=== PATIENT | male | born 1940 | race Caucasian/White ===

== ENCOUNTER → 2017-02-13 | Outpatient (CLI) | payer MEDICARE, OTHER ==
[~2017-02-13] MED LIST: AMLO5TAB2 PO; ASPI-621 PO; CHLO25TA PO; FINA5TAB4 PO; IRBE300T16 PO; METF500T4 PO; SIMV5TAB5 PO; TAMS0.4C2 PO
[2017-02-13 14:20] LABS: BLOOD UREA NITROGEN 32 mg/dL (7-18)
[2017-02-13 14:23] LABS: ASPARTATE AMINO TRANSFERASE 28 U/L (15-37)
== END | disposition home or self-care (01) ==
LOC: STAR 12:44
PROVIDERS: ATTEND Neurological Surgery
DX: Z01.818 Encounter for other preprocedural examination (principal); M51.36 Other intervertebral disc degeneration, lumbar region; M48.06 Spinal stenosis, lumbar region; M47.892 Other spondylosis, cervical region; M43.16 Spondylolisthesis, lumbar region; R79.1 Abnormal coagulation profile; Z98.1 Arthrodesis status
CPT/HCPCS: 36415; 71020; 72110; 80053; 81003; 83036; 85025; 85610; 85730; 93005

== ENCOUNTER 2017-02-21 07:10 | Inpatient (IN) | payer MEDICARE, OTHER ==
[~2017-02-21] VITALS: Ht 177.8 cm; Wt 85.3 kg
[~2017-02-21 07:10] MED LIST changes: +BACITRACIN 50,000 UNIT ONE; +BUPIVACAINE/PF-EPI 0.5% 1:200K ONE; +THROMBIN 5,000 UNIT VIAL TP ONE; +VANCOMYCIN 1,000 MG ONE
[2017-02-21 07:50] VITALS: BP 125/78
[2017-02-21] MEDS ORDERED: LACTATED RINGERS 1,000 ML IV SCH (07:58)
[2017-02-21] MEDS ORDERED: LIDOCAINE 1%, 2ML ONE (08:00)
[2017-02-21] MEDS ORDERED: LIDOCAINE 1%, 2ML SQ PRN (08:00)
[2017-02-21] MEDS ORDERED: MIDAZOLAM 1 MG/ML, 2ML ONE (08:09)
[2017-02-21] MEDS ORDERED: FENTANYL PF 250 MCG/5ML ONE ×3 (08:09→14:01)
[2017-02-21] MEDS ORDERED: CEFAZOLIN 1,000 MG ONE (10:55)
[2017-02-21] MEDS ORDERED: SUCCINYLCHOLINE 20 MG/ML, 10ML ONE (10:55)
[2017-02-21] MEDS ORDERED: ROCURONIUM 10 MG/ML ONE (10:55)
[2017-02-21] MEDS ORDERED: PHENYLEPHRINE 10 MG/ML ONE (10:55)
[2017-02-21] MEDS ORDERED: PROPOFOL 10 MG/ML, 20ML ONE ×2 (10:55)
[2017-02-21] MEDS ORDERED: EPHEDRINE 50 MG/ML, 1ML ONE (10:55)
[2017-02-21] MEDS ORDERED: ACETAMINOPHEN 325 MG TABLET PO PRN (11:00)
[2017-02-21] MEDS ORDERED: ONDANSETRON 2MG/ML, 2ML IVPush PRN (11:00)
[2017-02-21] MEDS ORDERED: hydrALAzine 20 MG/ML, 1ML IV PRN (11:00)
[2017-02-21] MEDS ORDERED: MEPERIDINE/PF 25MG/0.5ML IVPush PRN (11:00)
[2017-02-21] MEDS ORDERED: LABETALOL 5MG/ML, 20ML IV PRN (11:00)
[2017-02-21] MEDS ORDERED: OXYcodone 5 MG/5 ML ORAL.SOL UDC PO PRN (11:00)
[2017-02-21] MEDS ORDERED: METOCLOPRAMIDE 5 MG/ML, 2ML IV PRN (11:00)
[2017-02-21] MEDS ORDERED: PROMETHAZINE 25 MG/ML, 1ML IV PRN (11:00)
[2017-02-21] MEDS ORDERED: BUPIVACAINE/PF 0.25% INFIL ONE (12:35)
[2017-02-21] MEDS ORDERED: HEPARIN 1,000 UNITS/ML, 30ML IVPB ONE (12:36)
[2017-02-21] MEDS ORDERED: BUPIVACAINE/PF 0.25% ONE (13:20)
[2017-02-21] MEDS ORDERED: HYDROmorphone 2 MG/ML, 1ML ONE (15:07)
[2017-02-21] MEDS ORDERED: FENTANYL PF 100 MCG/2ML ONE (15:07)
[2017-02-21] MEDS: FENTANYL PF 100 MCG/2ML IV PRN ×2 (15:35→16:35)
[2017-02-21] MEDS ORDERED: HYDROmorphone PCA 30 MG/30 ML ONE (15:44)
[2017-02-21] MEDS: HYDROmorphone 1 MG/ML, 1ML IV PRN ×2 (16:00→16:20)
[2017-02-21] MEDS ORDERED: HYDROmorphone PCA 30 MG/30 ML IV PRN (18:00)
[2017-02-21] MEDS ORDERED: NS + 20MEQ KCL 1,000 ML IV SCH (18:00)
[2017-02-21] MEDS ORDERED: DIPHENHYDRAMINE 50 MG/ML, 1ML IVPush PRN (18:00)
[2017-02-21] MEDS ORDERED: HYDROcodone/APAP 5/325 TABLET PO PRN (18:00)
[2017-02-21] MEDS ORDERED: DIPHENHYDRAMINE 25 MG CAPSULE PO PRN (18:00)
[2017-02-21] MEDS ORDERED: ONDANSETRON 2MG/ML, 2ML IV PRN (18:00)
[2017-02-21] MEDS ORDERED: DIAZEPAM 5 MG/ML, 2ML IV PRN (18:00)
[2017-02-21] MEDS ORDERED: TIZANIDINE 4MG TABLET PO PRN (18:00)
[2017-02-21 20:00] VITALS: BP 95/61
[2017-02-21] MEDS: AMLODIPINE 5 MG TABLET PO SCH (20:47)
[2017-02-21] MEDS: SIMVASTATIN 5 MG TABLET PO SCH (20:47)
[2017-02-21] MEDS: CEFAZOLIN PMX 1GM/50ML 50 ML IVPB SCH (22:54)
[2017-02-22] VITALS (15 sets, daily range): BP systolic 55–133; BP diastolic 14–72
[2017-02-22] MEDS: OXYcodone/APAP 5/325MG TABLET PO PRN ×6 (03:00→21:50)
[2017-02-22 05:22] LABS: BLOOD UREA NITROGEN 27 mg/dL (7-18)
[2017-02-22] MEDS: CEFAZOLIN PMX 1GM/50ML 50 ML IVPB SCH (06:20)
[2017-02-22] MEDS: metFORMIN 500 MG TABLET PO SCH (09:32)
[2017-02-22] MEDS: SENNA/DOCUSATE TABLET PO SCH (09:32)
[2017-02-22] MEDS: IRBESARTAN 300 MG TABLET PO SCH (09:32)
[2017-02-22] MEDS: DIAZEPAM 5 MG TABLET PO PRN (09:32)
[2017-02-22] MEDS: AMLODIPINE 5 MG TABLET PO SCH ×2 (09:33→21:00)
[2017-02-22] MEDS: FINASTERIDE 5 MG TABLET PO SCH (09:33)
[2017-02-22] MEDS: NS + 20MEQ KCL 1,000 ML IV SCH (12:58)
[2017-02-22] MEDS: TAMSULOSIN 0.4 MG CAP.ER.24H PO SCH (12:58)
[2017-02-22] MEDS ORDERED: SODIUM CHLORIDE 0.9%, 500ML IVBOLUS ONE (15:30)
[2017-02-22 16:39] LABS: ASPARTATE AMINO TRANSFERASE 51 U/L (15-37); BLOOD UREA NITROGEN 25 mg/dL (7-18)
[2017-02-22] MEDS: MEPERIDINE/PF 100 MG/ML IM PRN (19:39)
[2017-02-22] MEDS: SIMVASTATIN 5 MG TABLET PO SCH (21:50)
[2017-02-23 02:06] VITALS: BP 107/50
[2017-02-23] MEDS: DIAZEPAM 5 MG TABLET PO PRN ×2 (03:47→20:42)
[2017-02-23 05:11] LABS: BLOOD UREA NITROGEN 19 mg/dL (7-18)
[2017-02-23] MEDS: OXYcodone/APAP 5/325MG TABLET PO PRN ×4 (06:38→23:02)
[2017-02-23 07:29] VITALS: BP 144/76
[2017-02-23] MEDS: NS + 20MEQ KCL 1,000 ML IV SCH ×3 (07:30→22:58)
[2017-02-23] MEDS: metFORMIN 500 MG TABLET PO SCH ×2 (09:59→20:42)
[2017-02-23] MEDS: IRBESARTAN 300 MG TABLET PO SCH (10:00)
[2017-02-23] MEDS: SENNA/DOCUSATE TABLET PO SCH (10:00)
[2017-02-23] MEDS: FINASTERIDE 5 MG TABLET PO SCH (10:00)
[2017-02-23] MEDS: AMLODIPINE 5 MG TABLET PO SCH ×2 (10:00→20:42)
[2017-02-23] MEDS: TAMSULOSIN 0.4 MG CAP.ER.24H PO SCH (10:00)
[2017-02-23] MEDS: CHLORTHALIDONE 25 MG TABLET PO SCH (10:00)
[2017-02-23] MEDS ORDERED: BISACODYL 10 MG SUPP PR ONE (10:00)
[2017-02-23] MEDS: MORPHINE SULFATE 4 MG/ML, 1ML IV PRN ×3 (13:39→23:53)
[2017-02-23 15:28] VITALS: BP 110/44
[2017-02-23 19:07] VITALS: BP 111/49
[2017-02-23] MEDS: SIMVASTATIN 5 MG TABLET PO SCH (20:42)
[2017-02-24] MEDS: MORPHINE SULFATE 4 MG/ML, 1ML IV PRN ×4 (00:13→15:33)
[2017-02-24] MEDS: MEPERIDINE/PF 100 MG/ML IM PRN (02:30)
[2017-02-24 02:35] VITALS: BP 116/56
[2017-02-24] MEDS: DIAZEPAM 5 MG TABLET PO PRN ×3 (03:07→21:36)
[2017-02-24] MEDS: OXYcodone/APAP 5/325MG TABLET PO PRN (04:50)
[2017-02-24 05:53] LABS: BLOOD UREA NITROGEN 13 mg/dL (7-18)
[2017-02-24 07:15] VITALS: BP 139/57
[2017-02-24] MEDS: metFORMIN 500 MG TABLET PO SCH ×2 (09:17→21:35)
[2017-02-24] MEDS: FINASTERIDE 5 MG TABLET PO SCH (09:17)
[2017-02-24] MEDS: IRBESARTAN 300 MG TABLET PO SCH (09:17)
[2017-02-24] MEDS: TAMSULOSIN 0.4 MG CAP.ER.24H PO SCH (09:18)
[2017-02-24] MEDS: SENNA/DOCUSATE TABLET PO SCH (09:18)
[2017-02-24] MEDS: AMLODIPINE 5 MG TABLET PO SCH ×2 (09:18→21:00)
[2017-02-24 09:20] VITALS: BP 121/61
[2017-02-24] MEDS: OXYcodone/APAP 10/325MG TABLET PO SCH ×4 (09:22→19:50)
[2017-02-24] MEDS ORDERED: NAPHAZOLINE/PHENIRAMINE OPHTH EACHEYE PRN (09:30)
[2017-02-24] MEDS: BISACODYL 10 MG SUPP PR PRN (11:30)
[2017-02-24] MEDS: NS + 20MEQ KCL 1,000 ML IV SCH ×2 (13:40→19:27)
[2017-02-24 15:25] VITALS: BP 110/62
[2017-02-24 16:34] LABS: IS PT STATUS REG ER OR PRE ER? NO
[2017-02-24] MEDS ORDERED: LEVOFLOXACIN/PMX 750MG/150ML 150 ML IV SCH (17:00)
[2017-02-24] MEDS ORDERED: ALBUTEROL SULFATE 2.5 MG/3 ML ONE (18:17)
[2017-02-24 20:00] VITALS: BP 108/58
[2017-02-24] MEDS: ALBUTEROL SULFATE 2.5 MG/3 ML NPPB SCH (20:00)
[2017-02-24] MEDS: AZITHROMYCIN 500 MG in SODIUM CHLORIDE 0.9% 250 ML IV SCH (20:26)
[2017-02-24] MEDS: CEFTRIAXONE PMX 1GM/50ML 50 ML IV SCH (21:34)
[2017-02-24] MEDS: SIMVASTATIN 5 MG TABLET PO SCH (21:35)
[2017-02-24 22:14] LABS: IS PT STATUS REG ER OR PRE ER? NO
[2017-02-25] MEDS: OXYcodone/APAP 10/325MG TABLET PO SCH ×6 (00:03→20:25)
[2017-02-25 03:00] VITALS: BP 118/55
[2017-02-25 04:23] LABS: BLOOD UREA NITROGEN 18 mg/dL (7-18)
[2017-02-25 04:31] LABS: IS PT STATUS REG ER OR PRE ER? NO
[2017-02-25] MEDS: DIAZEPAM 5 MG TABLET PO PRN ×3 (06:10→21:18)
[2017-02-25 07:28] VITALS: BP 131/50
[2017-02-25] MEDS: ALBUTEROL SULFATE 2.5 MG/3 ML NPPB SCH ×4 (08:20→19:30)
[2017-02-25] MEDS: TIZANIDINE 4MG TABLET PO SCH ×3 (08:54→23:00)
[2017-02-25] MEDS: SENNA/DOCUSATE TABLET PO SCH (08:55)
[2017-02-25] MEDS: AMLODIPINE 5 MG TABLET PO SCH ×2 (08:55→20:25)
[2017-02-25] MEDS: TAMSULOSIN 0.4 MG CAP.ER.24H PO SCH (08:55)
[2017-02-25] MEDS: FINASTERIDE 5 MG TABLET PO SCH (08:55)
[2017-02-25] MEDS: metFORMIN 500 MG TABLET PO SCH ×2 (08:55→20:25)
[2017-02-25] MEDS: IRBESARTAN 300 MG TABLET PO SCH (08:56)
[2017-02-25] MEDS: CHLORTHALIDONE 25 MG TABLET PO SCH (08:57)
[2017-02-25] MEDS: NS + 20MEQ KCL 1,000 ML IV SCH ×3 (09:30→22:30)
[2017-02-25] MEDS ORDERED: POTASSIUM CHLORIDE 20 MEQ TAB.ER.PRT PO ONE (10:30)
[2017-02-25] MEDS: MORPHINE SULFATE 4 MG/ML, 1ML IV PRN ×2 (10:50→14:43)
[2017-02-25] MEDS ORDERED: OMNIPAQUE 350 MG/ML, 100ML BOTTLE ONE (11:31)
[2017-02-25 15:09] VITALS: BP 95/50
[2017-02-25] MEDS: AZITHROMYCIN 500 MG in SODIUM CHLORIDE 0.9% 250 ML IV SCH (20:23)
[2017-02-25] MEDS: SIMVASTATIN 5 MG TABLET PO SCH (20:25)
[2017-02-25 20:33] VITALS: BP 107/55
[2017-02-25] MEDS: CEFTRIAXONE PMX 1GM/50ML 50 ML IV SCH (21:18)
[2017-02-26] MEDS: OXYcodone/APAP 10/325MG TABLET PO SCH ×6 (00:25→22:19)
[2017-02-26] MEDS: DIAZEPAM 5 MG TABLET PO PRN (03:22)
[2017-02-26 04:33] VITALS: BP 119/55
[2017-02-26] MEDS: TIZANIDINE 4MG TABLET PO SCH ×4 (04:47→21:18)
[2017-02-26 05:11] LABS: BLOOD UREA NITROGEN 18 mg/dL (7-18)
[2017-02-26 07:31] VITALS: BP 116/61
[2017-02-26] MEDS: ALBUTEROL SULFATE 2.5 MG/3 ML NPPB SCH ×4 (08:15→20:00)
[2017-02-26] MEDS: TAMSULOSIN 0.4 MG CAP.ER.24H PO SCH (08:41)
[2017-02-26] MEDS: SENNA/DOCUSATE TABLET PO SCH (08:42)
[2017-02-26] MEDS: FINASTERIDE 5 MG TABLET PO SCH (08:42)
[2017-02-26] MEDS: metFORMIN 500 MG TABLET PO SCH ×2 (08:42→21:18)
[2017-02-26] MEDS: IRBESARTAN 300 MG TABLET PO SCH (08:43)
[2017-02-26] MEDS: AMLODIPINE 5 MG TABLET PO SCH ×2 (08:43→21:00)
[2017-02-26] MEDS: DEXAMETHASONE 4 MG/ML, 1ML IVPush SCH ×3 (10:36→21:18)
[2017-02-26] MEDS: MAGNESIUM HYDROXIDE 8%, 30ML UDC PO PRN (12:43)
[2017-02-26 14:48] VITALS: BP 135/67
[2017-02-26] MEDS: NS + 20MEQ KCL 1,000 ML IV SCH ×2 (15:10→19:00)
[2017-02-26 18:44] VITALS: BP 131/63
[2017-02-26] MEDS: AZITHROMYCIN 500 MG in SODIUM CHLORIDE 0.9% 250 ML IV SCH (19:51)
[2017-02-26] MEDS: BISACODYL 10 MG SUPP PR PRN (19:51)
[2017-02-26] MEDS: SIMVASTATIN 5 MG TABLET PO SCH (21:18)
[2017-02-26] MEDS: CEFTRIAXONE PMX 1GM/50ML 50 ML IV SCH (21:18)
[2017-02-27] MEDS: TIZANIDINE 4MG TABLET PO SCH ×4 (00:30→18:28)
[2017-02-27 02:00] VITALS: BP 114/65
[2017-02-27] MEDS: DEXAMETHASONE 4 MG/ML, 1ML IVPush SCH ×4 (03:35→21:49)
[2017-02-27] MEDS: OXYcodone/APAP 10/325MG TABLET PO SCH ×5 (03:35→20:23)
[2017-02-27 06:16] LABS: BLOOD UREA NITROGEN 20 mg/dL (7-18)
[2017-02-27] MEDS: ALBUTEROL SULFATE 2.5 MG/3 ML NPPB SCH ×4 (07:55→19:50)
[2017-02-27 08:40] VITALS: BP 135/63
[2017-02-27] MEDS: IRBESARTAN 300 MG TABLET PO SCH (08:43)
[2017-02-27] MEDS: metFORMIN 500 MG TABLET PO SCH ×2 (08:44→21:50)
[2017-02-27] MEDS: TAMSULOSIN 0.4 MG CAP.ER.24H PO SCH (08:44)
[2017-02-27] MEDS: CHLORTHALIDONE 25 MG TABLET PO SCH (08:45)
[2017-02-27] MEDS: AMLODIPINE 5 MG TABLET PO SCH ×2 (08:46→21:50)
[2017-02-27] MEDS: FINASTERIDE 5 MG TABLET PO SCH (08:46)
[2017-02-27] MEDS: SENNA/DOCUSATE TABLET PO SCH (08:46)
[2017-02-27] MEDS: NS + 20MEQ KCL 1,000 ML IV SCH ×2 (11:30→21:30)
[2017-02-27] MEDS: MAGNESIUM HYDROXIDE 8%, 30ML UDC PO PRN (12:44)
[2017-02-27] MEDS: BISACODYL 10 MG SUPP PR PRN (15:42)
[2017-02-27 15:59] VITALS: BP 113/54
[2017-02-27 20:38] VITALS: BP 120/58
[2017-02-27] MEDS: SIMVASTATIN 5 MG TABLET PO SCH (21:50)
[2017-02-27] MEDS: CEFDINIR 300 MG CAPSULE PO SCH (21:50)
[2017-02-28] MEDS: TIZANIDINE 4MG TABLET PO SCH ×3 (00:30→12:45)
[2017-02-28] MEDS: OXYcodone/APAP 10/325MG TABLET PO SCH ×4 (00:52→12:46)
[2017-02-28 01:53] VITALS: BP 91/50
[2017-02-28] MEDS: DEXAMETHASONE 4 MG/ML, 1ML IVPush SCH ×2 (03:00→08:34)
[2017-02-28 06:00] LABS: BLOOD UREA NITROGEN 29 mg/dL (7-18)
[2017-02-28] MEDS: ALBUTEROL SULFATE 2.5 MG/3 ML NPPB SCH (07:00)
[2017-02-28] MEDS: NS + 20MEQ KCL 1,000 ML IV SCH (07:30)
[2017-02-28 08:09] VITALS: BP 95/42
[2017-02-28] MEDS: CEFDINIR 300 MG CAPSULE PO SCH (08:34)
[2017-02-28] MEDS: metFORMIN 500 MG TABLET PO SCH (08:34)
[2017-02-28] MEDS: SENNA/DOCUSATE TABLET PO SCH (08:34)
[2017-02-28] MEDS: TAMSULOSIN 0.4 MG CAP.ER.24H PO SCH (08:34)
[2017-02-28] MEDS: MAGNESIUM HYDROXIDE 8%, 30ML UDC PO PRN (08:36)
[2017-02-28] MEDS: IRBESARTAN 300 MG TABLET PO SCH (08:36)
[2017-02-28] MEDS: AMLODIPINE 5 MG TABLET PO SCH (08:36)
[2017-02-28] MEDS: FINASTERIDE 5 MG TABLET PO SCH (08:36)
[2017-02-28] MEDS ORDERED: AZITHROMYCIN 500 MG TABLET PO SCH ×2 (09:00)
[2017-02-28] MEDS: BISACODYL 10 MG SUPP PR PRN (11:00)
[2017-02-28] MEDS ORDERED: TIZA2TAB PO (11:10)
[2017-02-28] MEDS ORDERED: LACT1CAP24 PO (12:14)
[2017-02-28] MEDS ORDERED: AZIT500T77 PO (12:14)
[2017-02-28] MEDS ORDERED: CEFD300C37 PO (12:14)
[2017-02-28] MEDS ORDERED: GOLYTELY 4,000ML ORAL.SOL PO ONE ×2 (12:30→14:19)
[2017-02-28] MEDS ORDERED: POLYETHYLENE GLYCOL 17 GM PACKET PO SCH (12:30)
[2017-02-28] MEDS ORDERED: OXYcodone/APAP 5/325MG TABLET PO PRN (13:30)
[2017-02-28] MEDS ORDERED: GOLYTELY 4,000ML ORAL.SOL PO SCH (14:00)
[2017-02-28] MEDS ORDERED: LACTULOSE 3.3 GM/5 ML ORAL.SOL RC ONE (15:00)
[2017-02-28 15:58] VITALS: BP 116/61
== END 2017-02-28 16:15 | DRG 459 ==
LOC: ORIP 07:10 → 4NOR 17:24
PROVIDERS: ADMIT Neurological Surgery; ATTEND Internal Medicine
PROC: 0SG10AJ Fusion of 2 or more Lumbar Vertebral Joints with Interbody Fusion Device, Posterior Approach, Anterior Column, Open Approach (ICD-10-PCS; principal; 2017-02-22)
PROC: 0RGA0A1 (ICD-10-PCS; 2017-02-22)
PROC: 0SP004Z Removal of Internal Fixation Device from Lumbar Vertebral Joint, Open Approach (ICD-10-PCS; 2017-02-22)
PROC: 0RG6071 Fusion of Thoracic Vertebral Joint with Autologous Tissue Substitute, Posterior Approach, Posterior Column, Open Approach (ICD-10-PCS; 2017-02-22)
PROC: 4A11X4G Monitoring of Peripheral Nervous Electrical Activity, Intraoperative, External Approach (ICD-10-PCS; 2017-02-22)
PROC: 30233N1 Transfusion of Nonautologous Red Blood Cells into Peripheral Vein, Percutaneous Approach (ICD-10-PCS; 2017-02-22)
PROC: 0T9B70Z Drainage of Bladder with Drainage Device, Via Natural or Artificial Opening (ICD-10-PCS; 2017-02-24)
DX: M48.06 Spinal stenosis, lumbar region (principal); J18.9 Pneumonia, unspecified organism; J96.01 Acute respiratory failure with hypoxia; E87.1 Hypo-osmolality and hyponatremia; E44.0 Moderate protein-calorie malnutrition; D64.9 Anemia, unspecified; E11.9 Type 2 diabetes mellitus without complications; E78.5 Hyperlipidemia, unspecified; E87.6 Hypokalemia; H91.90 Unspecified hearing loss, unspecified ear; I10 Essential (primary) hypertension; I44.7 Left bundle-branch block, unspecified; M40.209 Unspecified kyphosis, site unspecified; N40.0 Benign prostatic hyperplasia without lower urinary tract symptoms; Z83.3 Family history of diabetes mellitus; Z87.891 Personal history of nicotine dependence; Z88.2 Allergy status to sulfonamides; Z88.5 Allergy status to narcotic agent; Z90.49 Acquired absence of other specified parts of digestive tract; Z79.899 Other long term (current) drug therapy; Z79.82 Long term (current) use of aspirin; Z68.27 Body mass index [BMI] 27.0-27.9, adult; M40.36 Flatback syndrome, lumbar region; M40.205 Unspecified kyphosis, thoracolumbar region
CPT/HCPCS: 36415; 71010; 71275; 72100; 80048; 80053; 81003; 82962; 83605; 84145; 84484; 85025; 86850; 86900; 86923; 87040; 93005; 94640; 95938; 95941; C1713; C1776; J0456; J0690; J0696; J1100; J1170; J1644; J2250; J2704; J3010; J3370; J3480; J3490; J7613; Q9967; C1762; J0330; J2175; J2370; J7040; J7050; J7120; P9016

== ENCOUNTER 2017-03-06 17:05 | Inpatient (IN) | payer MEDICARE, OTHER ==
[~2017-03-06] VITALS: Ht 180.3 cm; Wt 87.7 kg
[~2017-03-06 17:05] MED LIST changes: +AZIT500T77 PO; -BACITRACIN 50,000 UNIT ONE; -BUPIVACAINE/PF-EPI 0.5% 1:200K ONE; +CEFD300C37 PO; +LACT1CAP24 PO; -THROMBIN 5,000 UNIT VIAL TP ONE; +TIZA2TAB PO; -VANCOMYCIN 1,000 MG ONE
[2017-03-06] MEDS ORDERED: SODIUM CHLORIDE FLUSH 10ML SYR IVF ONE (18:00)
[2017-03-06 18:41] LABS: ASPARTATE AMINO TRANSFERASE 25 U/L (15-37); BLOOD UREA NITROGEN 28 mg/dL (7-18)
[2017-03-06 18:54] LABS: DIFF TOTAL CELLS COUNTED 100 CELL DIFF
[2017-03-06 18:55] LABS: VERIFY COUNTS? YES
[2017-03-06] MEDS ORDERED: ONDANSETRON 2MG/ML, 2ML IVPush ONE (19:30)
[2017-03-06] MEDS ORDERED: MORPHINE SULFATE 4 MG/ML, 1ML IVPush ONE (19:30)
[2017-03-06] MEDS ORDERED: MORPHINE SULFATE 4 MG/ML, 1ML ONE (19:31)
[2017-03-06] MEDS ORDERED: ONDANSETRON 2MG/ML, 2ML ONE (19:32)
[2017-03-06] MEDS ORDERED: LORazepam 2 MG/ML, 1ML ONE (19:55)
[2017-03-06] MEDS ORDERED: LORazepam 2 MG/ML, 1ML IVPush PRN ×2 (20:00→21:30)
[2017-03-06] MEDS ORDERED: TRAM50TA2 PO (20:16)
[2017-03-06] MEDS ORDERED: OXYC-302 PO (20:16)
[2017-03-06] MEDS ORDERED: METH4TAB PO (20:16)
[2017-03-06] MEDS ORDERED: METF500T4 PO (20:16)
[2017-03-06] MEDS ORDERED: DEXAMETHASONE PO (20:16)
[2017-03-06] MEDS ORDERED: DOCU-30 PO (20:16)
[2017-03-06] MEDS ORDERED: INSU100V5 SQ-INSULIN (20:16)
[2017-03-06] MEDS ORDERED: SODIUM CHLORIDE FLUSH 10ML SYR IVF PRN (21:00)
[2017-03-06] MEDS ORDERED: ONDANSETRON 2MG/ML, 2ML IVPush PRN (21:30)
[2017-03-06] MEDS ORDERED: morphine SULFATE 10 MG/ML, 1ML IVPush PRN (21:30)
[2017-03-06] MEDS ORDERED: POLYETHYLENE GLYCOL 17 GM PACKET PO PRN (21:30)
[2017-03-06] MEDS ORDERED: hydrALAzine 20 MG/ML, 1ML IVPush PRN (21:30)
[2017-03-06] MEDS: HEPARIN 5,000 UNITS/ML, 1ML SQ SCH (21:49)
[2017-03-06 22:19] VITALS: BP 115/62
[2017-03-06] MEDS: TIZANIDINE 4MG TABLET PO SCH (22:59)
[2017-03-07 03:00] VITALS: BP 123/69
[2017-03-07] MEDS: HEPARIN 5,000 UNITS/ML, 1ML SQ SCH ×3 (05:26→21:50)
[2017-03-07] MEDS: TIZANIDINE 4MG TABLET PO SCH ×4 (05:26→22:48)
[2017-03-07 05:31] LABS: BLOOD UREA NITROGEN 27 mg/dL (7-18)
[2017-03-07 06:24] LABS: DIFF TOTAL CELLS COUNTED 100 CELL DIFF
[2017-03-07 06:26] LABS: VERIFY COUNTS? YES
[2017-03-07] MEDS: CEFDINIR 300 MG CAPSULE PO SCH ×2 (08:02→21:49)
[2017-03-07] MEDS: LACTOBACILLUS CHEW TABLET PO SCH ×3 (08:02→21:49)
[2017-03-07] MEDS: SENNA/DOCUSATE TABLET PO SCH (08:02)
[2017-03-07] MEDS: DEXAMETHASONE 4 MG TABLET PO SCH ×2 (08:02→16:57)
[2017-03-07] MEDS: AMLODIPINE 5 MG TABLET PO SCH ×2 (08:02→21:50)
[2017-03-07] MEDS: TAMSULOSIN 0.4 MG CAP.ER.24H PO SCH (08:03)
[2017-03-07] MEDS: IRBESARTAN 300 MG TABLET PO SCH (08:03)
[2017-03-07] MEDS: FINASTERIDE 5 MG TABLET PO SCH (08:03)
[2017-03-07] MEDS: AZITHROMYCIN 500 MG TABLET PO SCH (08:04)
[2017-03-07 08:05] VITALS: BP 129/69
[2017-03-07] MEDS ORDERED: DOCUSATE 100 MG CAPSULE PO SCH (09:00)
[2017-03-07] MEDS: OXYcodone/APAP 5/325MG TABLET PO PRN ×4 (10:01→20:29)
[2017-03-07] MEDS ORDERED: BISACODYL 10 MG SUPP PR PRN (14:30)
[2017-03-07 14:50] VITALS: BP 78/43
[2017-03-07] MEDS ORDERED: SODIUM CHLORIDE 0.9%, 500ML IVBOLUS ONE (15:00)
[2017-03-07 17:12] VITALS: BP 96/57
[2017-03-07] MEDS: SODIUM CHLORIDE 0.9% 1,000 ML IV SCH (17:47)
[2017-03-07 19:39] VITALS: BP 124/70
[2017-03-07] MEDS: SIMVASTATIN 5 MG TABLET PO SCH (21:00)
[2017-03-08 01:43] VITALS: BP 108/63
[2017-03-08] MEDS: SODIUM CHLORIDE 0.9% 1,000 ML IV SCH (03:52)
[2017-03-08] MEDS: TIZANIDINE 4MG TABLET PO SCH ×4 (05:55→23:18)
[2017-03-08] MEDS: OXYcodone/APAP 5/325MG TABLET PO PRN ×4 (05:55→20:28)
[2017-03-08] MEDS: HEPARIN 5,000 UNITS/ML, 1ML SQ SCH ×3 (05:56→23:18)
[2017-03-08 06:34] LABS: ASPARTATE AMINO TRANSFERASE 17 U/L (15-37); BLOOD UREA NITROGEN 28 mg/dL (7-18)
[2017-03-08 07:36] VITALS: BP 112/62
[2017-03-08] MEDS: LACTOBACILLUS CHEW TABLET PO SCH ×3 (07:39→20:28)
[2017-03-08] MEDS: TAMSULOSIN 0.4 MG CAP.ER.24H PO SCH (07:39)
[2017-03-08] MEDS: SENNA/DOCUSATE TABLET PO SCH (07:40)
[2017-03-08] MEDS: DEXAMETHASONE 4 MG TABLET PO SCH ×2 (07:40→17:31)
[2017-03-08] MEDS: FINASTERIDE 5 MG TABLET PO SCH (07:40)
[2017-03-08] MEDS: AMLODIPINE 5 MG TABLET PO SCH ×2 (07:40→20:28)
[2017-03-08] MEDS: CEFDINIR 300 MG CAPSULE PO SCH ×2 (07:40→20:28)
[2017-03-08] MEDS: IRBESARTAN 300 MG TABLET PO SCH (07:41)
[2017-03-08] MEDS: AZITHROMYCIN 500 MG TABLET PO SCH (07:41)
[2017-03-08] MEDS: CHLORTHALIDONE 25 MG TABLET PO SCH (07:42)
[2017-03-08] MEDS: POLYETHYLENE GLYCOL 17 GM PACKET PO SCH (07:46)
[2017-03-08 13:28] VITALS: BP 100/52
[2017-03-08 19:11] VITALS: BP 111/40
[2017-03-08] MEDS: SIMVASTATIN 5 MG TABLET PO SCH (20:28)
[2017-03-09] MEDS: OXYcodone/APAP 5/325MG TABLET PO PRN ×5 (01:14→21:27)
[2017-03-09 02:38] VITALS: BP 119/64
[2017-03-09] MEDS: TIZANIDINE 4MG TABLET PO SCH ×4 (05:13→21:27)
[2017-03-09 06:02] LABS: BLOOD UREA NITROGEN 27 mg/dL (7-18)
[2017-03-09 07:37] VITALS: BP 113/57
[2017-03-09] MEDS: CEFDINIR 300 MG CAPSULE PO SCH (08:36)
[2017-03-09] MEDS: FINASTERIDE 5 MG TABLET PO SCH (08:36)
[2017-03-09] MEDS: DEXAMETHASONE 4 MG TABLET PO SCH ×2 (08:36→17:16)
[2017-03-09] MEDS: LACTOBACILLUS CHEW TABLET PO SCH ×3 (08:36→20:54)
[2017-03-09] MEDS: HEPARIN 5,000 UNITS/ML, 1ML SQ SCH ×3 (08:36→21:28)
[2017-03-09] MEDS: SENNA/DOCUSATE TABLET PO SCH (08:36)
[2017-03-09] MEDS: AZITHROMYCIN 500 MG TABLET PO SCH (08:37)
[2017-03-09] MEDS: AMLODIPINE 5 MG TABLET PO SCH ×2 (08:38→20:53)
[2017-03-09] MEDS: TAMSULOSIN 0.4 MG CAP.ER.24H PO SCH (08:39)
[2017-03-09] MEDS: IRBESARTAN 300 MG TABLET PO SCH (08:40)
[2017-03-09] MEDS: POLYETHYLENE GLYCOL 17 GM PACKET PO SCH (08:44)
[2017-03-09 14:22] VITALS: BP 121/64
[2017-03-09 19:43] VITALS: BP 115/62
[2017-03-09] MEDS: SIMVASTATIN 5 MG TABLET PO SCH (20:54)
[2017-03-09] MEDS ORDERED: CEFDINIR 300 MG CAPSULE PO SCH (21:00)
[2017-03-10] MEDS: OXYcodone/APAP 5/325MG TABLET PO PRN ×5 (01:59→20:46)
[2017-03-10 02:02] VITALS: BP 129/55
[2017-03-10 04:56] LABS: BLOOD UREA NITROGEN 24 mg/dL (7-18)
[2017-03-10] MEDS: HEPARIN 5,000 UNITS/ML, 1ML SQ SCH ×3 (06:21→21:26)
[2017-03-10] MEDS: TIZANIDINE 4MG TABLET PO SCH ×4 (06:21→21:25)
[2017-03-10] MEDS: DEXAMETHASONE 4 MG TABLET PO SCH ×2 (08:11→17:08)
[2017-03-10 08:28] VITALS: BP 115/62
[2017-03-10] MEDS: POLYETHYLENE GLYCOL 17 GM PACKET PO SCH (09:00)
[2017-03-10] MEDS: TAMSULOSIN 0.4 MG CAP.ER.24H PO SCH (09:25)
[2017-03-10] MEDS: LACTOBACILLUS CHEW TABLET PO SCH ×3 (09:25→20:46)
[2017-03-10] MEDS: FINASTERIDE 5 MG TABLET PO SCH (09:25)
[2017-03-10] MEDS: CHLORTHALIDONE 25 MG TABLET PO SCH (09:25)
[2017-03-10] MEDS: IRBESARTAN 300 MG TABLET PO SCH (09:25)
[2017-03-10] MEDS: AMLODIPINE 5 MG TABLET PO SCH ×2 (09:25→20:46)
[2017-03-10] MEDS: SENNA/DOCUSATE TABLET PO SCH (09:26)
[2017-03-10] MEDS ORDERED: POLY17PO5 PO (11:04)
[2017-03-10] MEDS ORDERED: SENN1TAB7 PO (11:04)
[2017-03-10 15:31] VITALS: BP 116/59
[2017-03-10] MEDS ORDERED: DEXA4TAB PO (16:31)
[2017-03-10 19:38] VITALS: BP 134/54
[2017-03-10] MEDS: SIMVASTATIN 5 MG TABLET PO SCH (21:26)
[2017-03-11 02:02] VITALS: BP 118/56
[2017-03-11] MEDS: OXYcodone/APAP 5/325MG TABLET PO PRN ×4 (02:04→15:30)
[2017-03-11] MEDS: HEPARIN 5,000 UNITS/ML, 1ML SQ SCH ×3 (06:30→23:25)
[2017-03-11] MEDS: TIZANIDINE 4MG TABLET PO SCH ×4 (06:30→23:25)
[2017-03-11 07:30] VITALS: BP 119/57
[2017-03-11] MEDS: DEXAMETHASONE 4 MG TABLET PO SCH ×2 (09:40→16:45)
[2017-03-11] MEDS: FINASTERIDE 5 MG TABLET PO SCH (09:40)
[2017-03-11] MEDS: SENNA/DOCUSATE TABLET PO SCH (09:40)
[2017-03-11] MEDS: LACTOBACILLUS CHEW TABLET PO SCH ×3 (09:40→21:00)
[2017-03-11] MEDS: AMLODIPINE 5 MG TABLET PO SCH ×2 (09:40→21:00)
[2017-03-11] MEDS: TAMSULOSIN 0.4 MG CAP.ER.24H PO SCH (09:40)
[2017-03-11] MEDS: POLYETHYLENE GLYCOL 17 GM PACKET PO SCH (09:40)
[2017-03-11] MEDS: IRBESARTAN 300 MG TABLET PO SCH (10:30)
[2017-03-11 12:45] VITALS: BP 105/67
[2017-03-11 19:20] VITALS: BP 117/58
[2017-03-11] MEDS: SIMVASTATIN 5 MG TABLET PO SCH (21:00)
[2017-03-12 01:30] VITALS: BP 96/58
[2017-03-12] MEDS: TIZANIDINE 4MG TABLET PO SCH ×5 (04:25→20:51)
[2017-03-12] MEDS: OXYcodone/APAP 5/325MG TABLET PO PRN ×4 (04:25→21:00)
[2017-03-12 07:38] VITALS: BP 115/65
[2017-03-12] MEDS: CHLORTHALIDONE 25 MG TABLET PO SCH (08:45)
[2017-03-12] MEDS: HEPARIN 5,000 UNITS/ML, 1ML SQ SCH ×2 (08:45→17:00)
[2017-03-12] MEDS: POLYETHYLENE GLYCOL 17 GM PACKET PO SCH (09:00)
[2017-03-12] MEDS: IRBESARTAN 300 MG TABLET PO SCH (09:00)
[2017-03-12] MEDS: FINASTERIDE 5 MG TABLET PO SCH (09:00)
[2017-03-12] MEDS: TAMSULOSIN 0.4 MG CAP.ER.24H PO SCH (09:00)
[2017-03-12] MEDS: LACTOBACILLUS CHEW TABLET PO SCH ×4 (09:00→21:00)
[2017-03-12] MEDS: SENNA/DOCUSATE TABLET PO SCH (09:00)
[2017-03-12] MEDS: AMLODIPINE 5 MG TABLET PO SCH ×2 (09:00→20:51)
[2017-03-12] MEDS: DEXAMETHASONE 4 MG TABLET PO SCH (10:00)
[2017-03-12 13:58] VITALS: BP 131/64
[2017-03-12 19:46] VITALS: BP 113/55
[2017-03-12] MEDS: SIMVASTATIN 5 MG TABLET PO SCH ×2 (20:50→21:00)
[2017-03-13 02:00] VITALS: BP 135/62
[2017-03-13] MEDS: TIZANIDINE 4MG TABLET PO SCH ×2 (02:06→08:12)
[2017-03-13] MEDS: HEPARIN 5,000 UNITS/ML, 1ML SQ SCH ×2 (02:08→11:19)
[2017-03-13 06:40] LABS: BLOOD UREA NITROGEN 27 mg/dL (7-18)
[2017-03-13 07:53] VITALS: BP 131/62
[2017-03-13] MEDS: OXYcodone/APAP 5/325MG TABLET PO PRN ×3 (08:11→12:15)
[2017-03-13] MEDS: AMLODIPINE 5 MG TABLET PO SCH (08:12)
[2017-03-13] MEDS: LACTOBACILLUS CHEW TABLET PO SCH (08:12)
[2017-03-13] MEDS: TAMSULOSIN 0.4 MG CAP.ER.24H PO SCH (08:12)
[2017-03-13] MEDS: POLYETHYLENE GLYCOL 17 GM PACKET PO SCH (08:12)
[2017-03-13] MEDS: SENNA/DOCUSATE TABLET PO SCH (08:12)
[2017-03-13] MEDS: FINASTERIDE 5 MG TABLET PO SCH (08:12)
[2017-03-13] MEDS: IRBESARTAN 300 MG TABLET PO SCH (08:13)
== END 2017-03-13 13:15 | DRG 393 ==
LOC: ED 20:14 → EDIP 20:34 → 3NE 21:26
PROVIDERS: ADMIT Internal Medicine; ATTEND Internal Medicine
DX: K91.3 Postprocedural intestinal obstruction (principal); J18.9 Pneumonia, unspecified organism; E44.0 Moderate protein-calorie malnutrition; E87.1 Hypo-osmolality and hyponatremia; R33.8 Other retention of urine; D64.9 Anemia, unspecified; E11.9 Type 2 diabetes mellitus without complications; E78.5 Hyperlipidemia, unspecified; E87.8 Other disorders of electrolyte and fluid balance, not elsewhere classified; H91.90 Unspecified hearing loss, unspecified ear; M54.9 Dorsalgia, unspecified; R10.84 Generalized abdominal pain; I95.9 Hypotension, unspecified; Y83.8 Other surgical procedures as the cause of abnormal reaction of the patient, or of later complication, without mention of misadventure at the time of the procedure; Y82.8 Other medical devices associated with adverse incidents; I11.9 Hypertensive heart disease without heart failure; N40.1 Benign prostatic hyperplasia with lower urinary tract symptoms; R33.9 Retention of urine, unspecified; Z87.01 Personal history of pneumonia (recurrent); Z83.3 Family history of diabetes mellitus; Z87.891 Personal history of nicotine dependence; Z82.49 Family history of ischemic heart disease and other diseases of the circulatory system; Z68.27 Body mass index [BMI] 27.0-27.9, adult; Z98.1 Arthrodesis status; Z90.49 Acquired absence of other specified parts of digestive tract; Z90.89 Acquired absence of other organs; Z88.2 Allergy status to sulfonamides; Z88.5 Allergy status to narcotic agent
CPT/HCPCS: 36415; 51702; 71010; 74020; 76770; 80048; 80053; 81003; 82040; 82962; 83690; 84145; 85025; 87040; 96374; 96375; J1644; J2405; J2060; J2270; J7030; J7040

== ENCOUNTER 2017-05-28 06:05 | Inpatient (IN) | payer MEDICARE, OTHER ==
[~2017-05-28] VITALS: Ht 177.8 cm; Wt 70.0 kg
[~2017-05-28 06:05] MED LIST changes: +ASPI-496 PO; +AZIT500T5 PO; -AZIT500T77 PO; +CHOL100012 PO; +DEXA4TAB PO; +DEXAMETHASONE PO; +DOCU-131 PO; +INSU100V5 SQ-INSULIN; +METH4TAB PO; +OMEG-69 PO; +OXYC-302 PO; +POLY17PO5 PO; +SENN1TAB7 PO; +TRAM50TA2 PO
[2017-05-28] MEDS ORDERED: BUPIVACAINE/PF-EPI 0.5% 1:200K ONE (06:36)
[2017-05-28] MEDS ORDERED: LACTATED RINGERS 1,000 ML IV SCH (06:36)
[2017-05-28] MEDS ORDERED: THROMBIN 5,000 UNIT VIAL TP ONE (06:37)
[2017-05-28] MEDS ORDERED: BACITRACIN 50,000 UNIT ONE (06:37)
[2017-05-28] MEDS ORDERED: BUPIVACAINE/PF 0.5% ONE (06:38)
[2017-05-28] MEDS ORDERED: EPINEPHRINE 1 MG/ML, 1ML ONE (06:38)
[2017-05-28] MEDS ORDERED: VANCOMYCIN 1,000 MG ONE (06:38)
[2017-05-28] MEDS ORDERED: DOCU240C53 PO (06:41)
[2017-05-28] MEDS ORDERED: PRESSER VISION PO (06:41)
[2017-05-28] MEDS ORDERED: OXYCODONE PO (06:41)
[2017-05-28] MEDS ORDERED: LOSA100T6 PO (06:41)
[2017-05-28] MEDS ORDERED: IRON PO (06:41)
[2017-05-28 06:42] VITALS: BP 128/72
[2017-05-28] MEDS ORDERED: SUCCINYLCHOLINE 20 MG/ML, 10ML ONE (08:01)
[2017-05-28] MEDS ORDERED: ESMOLOL 100 MG/10 ML ONE (08:01)
[2017-05-28] MEDS ORDERED: PROPOFOL 10 MG/ML, 50ML ONE (08:01)
[2017-05-28] MEDS ORDERED: KETAMINE 10 MG/ML, 20ML ONE (08:01)
[2017-05-28] MEDS ORDERED: PROPOFOL 10 MG/ML, 20ML ONE (08:01)
[2017-05-28] MEDS ORDERED: EPHEDRINE 50 MG/ML, 1ML ONE (08:01)
[2017-05-28] MEDS ORDERED: PHENYLEPHRINE 10 MG/ML ONE (08:01)
[2017-05-28] MEDS ORDERED: ONDANSETRON 2MG/ML, 2ML ONE (08:01)
[2017-05-28] MEDS ORDERED: DEXAMETHASONE 4 MG/ML, 1ML ONE (08:01)
[2017-05-28] MEDS ORDERED: CEFAZOLIN 1,000 MG ONE (08:01)
[2017-05-28] MEDS ORDERED: OXYcodone 5 MG/5 ML ORAL.SOL UDC PO PRN (09:00)
[2017-05-28] MEDS ORDERED: HYDROmorphone 1 MG/ML, 1ML IV PRN (09:00)
[2017-05-28] MEDS ORDERED: MIDAZOLAM 1 MG/ML, 2ML IV PRN (09:00)
[2017-05-28] MEDS ORDERED: FENTANYL PF 100 MCG/2ML IV PRN (09:00)
[2017-05-28] MEDS ORDERED: ALBUTEROL/IPRATROPIUM 2.5MG/0.5MG, 3 ML NPPB PRN (09:00)
[2017-05-28] MEDS ORDERED: LABETALOL 5MG/ML, 20ML IV PRN (09:00)
[2017-05-28] MEDS ORDERED: PROMETHAZINE 25 MG/ML, 1ML IV PRN (09:00)
[2017-05-28] MEDS ORDERED: ONDANSETRON 2MG/ML, 2ML IVPush PRN (09:00)
[2017-05-28] MEDS ORDERED: MEPERIDINE/PF 25MG/0.5ML IVPush PRN (09:00)
[2017-05-28] MEDS ORDERED: hydrALAzine 20 MG/ML, 1ML IV PRN (09:00)
[2017-05-28] MEDS ORDERED: ACETAMINOPHEN 325 MG TABLET PO PRN (09:00)
[2017-05-28] MEDS ORDERED: HYDROmorphone 2 MG/ML, 1ML ONE (12:57)
[2017-05-28] MEDS ORDERED: HYDROmorphone PCA 30 MG/30 ML ONE (12:57)
[2017-05-28 13:38] LABS: HEMATOCRIT 30.8 % (39.2-51.8); HEMOGLOBIN 10.1 g/dL (13.7-18.0)
[2017-05-28] MEDS: PHENYLEPHRINE 10 MG in SODIUM CHLORIDE 0.9% 249 ML IV PRN ×2 (13:39→18:08)
[2017-05-28 13:53] LABS: IS PT STATUS REG ER OR PRE ER? NO
[2017-05-28] MEDS ORDERED: HYDROmorphone PCA 30 MG/30 ML IV PRN (15:00)
[2017-05-28] MEDS ORDERED: ONDANSETRON 2MG/ML, 2ML IV PRN (15:30)
[2017-05-28] MEDS ORDERED: BISACODYL 10 MG SUPP PR PRN (15:30)
[2017-05-28] MEDS ORDERED: MAGNESIUM HYDROXIDE 8%, 30ML UDC PO PRN (15:30)
[2017-05-28] MEDS: CEFAZOLIN PMX 1GM/50ML 50 ML IVPB SCH ×2 (15:37→23:53)
[2017-05-28] MEDS: NS + 20MEQ KCL 1,000 ML IV SCH (15:37)
[2017-05-28] MEDS: DIPHENHYDRAMINE 50 MG/ML, 1ML IVPush SCH ×2 (15:41→22:51)
[2017-05-28] MEDS: DIAZEPAM 5 MG TABLET PO PRN (15:42)
[2017-05-28] MEDS ORDERED: METHOCARBAMOL 1,000 MG in DEXTROSE 5% 100 ML IV ONE (16:00)
[2017-05-28] MEDS: metFORMIN 500 MG TABLET PO SCH (17:39)
[2017-05-28 18:36] VITALS: BP 86/54
[2017-05-28] MEDS: PHENYLEPHRINE 20 MG in SODIUM CHLORIDE 0.9% 248 ML IV PRN (19:58)
[2017-05-28] MEDS: AMLODIPINE 5 MG TABLET PO SCH (20:25)
[2017-05-28] MEDS: SIMVASTATIN 5 MG TABLET PO SCH (20:25)
[2017-05-28] MEDS: DOCUSATE CALCIUM 240 MG CAPSULE PO SCH (20:25)
[2017-05-28] MEDS: OXYcodone IR 5MG TABLET PO PRN (22:51)
[2017-05-28] MEDS: METHOCARBAMOL 750 MG in DEXTROSE 5% 100 ML IV SCH (23:53)
[2017-05-29] MEDS: PHENYLEPHRINE 20 MG in SODIUM CHLORIDE 0.9% 248 ML IV PRN ×3 (01:37→23:10)
[2017-05-29] MEDS: HYDROmorphone 2 MG/ML, 1ML IV PRN ×2 (01:37→19:26)
[2017-05-29] MEDS: OXYcodone IR 5MG TABLET PO PRN ×3 (03:21→19:43)
[2017-05-29] MEDS: NS + 20MEQ KCL 1,000 ML IV SCH (04:30)
[2017-05-29 04:39] LABS: HEMATOCRIT 27.1 % (39.2-51.8); HEMOGLOBIN 8.9 g/dL (13.7-18.0); WHITE BLOOD COUNT 13.6 x10^3/uL (3.4-10)
[2017-05-29 04:52] LABS: BLOOD UREA NITROGEN 16 mg/dL (7-18)
[2017-05-29] MEDS: DIPHENHYDRAMINE 50 MG/ML, 1ML IVPush SCH ×2 (07:30→21:00)
[2017-05-29] MEDS: DOCUSATE CALCIUM 240 MG CAPSULE PO SCH ×2 (09:00→19:46)
[2017-05-29] MEDS: LOSARTAN 50MG TABLET PO SCH (09:00)
[2017-05-29] MEDS: CHLORTHALIDONE 25 MG TABLET PO SCH (09:00)
[2017-05-29] MEDS: SODIUM CHLORIDE 0.9% 1,000 ML IV SCH (09:00)
[2017-05-29] MEDS: AMLODIPINE 5 MG TABLET PO SCH ×2 (09:00→19:44)
[2017-05-29] MEDS: METHOCARBAMOL 750 MG in DEXTROSE 5% 100 ML IV SCH ×3 (09:56→23:11)
[2017-05-29] MEDS: CEFAZOLIN PMX 1GM/50ML 50 ML IVPB SCH ×3 (09:56→23:11)
[2017-05-29] MEDS: FINASTERIDE 5 MG TABLET PO SCH (09:57)
[2017-05-29] MEDS: TAMSULOSIN 0.4 MG CAP.ER.24H PO SCH (09:58)
[2017-05-29] MEDS: CHOLECALCIFEROL 1,000 UNIT TABLET PO SCH (09:58)
[2017-05-29] MEDS: metFORMIN 500 MG TABLET PO SCH ×2 (09:58→17:03)
[2017-05-29] MEDS: DIAZEPAM 5 MG TABLET PO PRN (19:43)
[2017-05-29] MEDS: DIPHENHYDRAMINE 50 MG CAPSULE PO PRN (19:43)
[2017-05-29] MEDS: SIMVASTATIN 5 MG TABLET PO SCH (19:45)
[2017-05-30] MEDS: SODIUM CHLORIDE 0.9% 1,000 ML IV SCH ×3 (00:53→20:25)
[2017-05-30] MEDS: OXYcodone IR 5MG TABLET PO PRN ×2 (00:54→05:12)
[2017-05-30] MEDS: HYDROmorphone 2 MG/ML, 1ML IV PRN (00:54)
[2017-05-30] MEDS: DIPHENHYDRAMINE 50 MG CAPSULE PO PRN (00:55)
[2017-05-30] MEDS ORDERED: DIPHENHYDRAMINE 25 MG CAPSULE ONE (04:31)
[2017-05-30 04:33] VITALS: BP 128/50
[2017-05-30 04:33] LABS: HEMATOCRIT 23.8 % (39.2-51.8); HEMOGLOBIN 7.9 g/dL (13.7-18.0); WHITE BLOOD COUNT 15.1 x10^3/uL (3.4-10)
[2017-05-30 04:40] LABS: BLOOD UREA NITROGEN 16 mg/dL (7-18)
[2017-05-30] MEDS ORDERED: DIPHENHYDRAMINE 25 MG CAPSULE PO SCH (05:00)
[2017-05-30] MEDS ORDERED: DIPHENHYDRAMINE 25 MG CAPSULE PO PRN (05:00)
[2017-05-30] MEDS: DIAZEPAM 5 MG TABLET PO PRN (05:11)
[2017-05-30] MEDS ORDERED: ACETAMINOPHEN 325 MG TABLET PO PRN (08:00)
[2017-05-30] MEDS ORDERED: HYDROmorphone PCA 30 MG/30 ML IV PRN (08:00)
[2017-05-30] MEDS ORDERED: DIPHENHYDRAMINE 50 MG CAPSULE PO PRN (08:30)
[2017-05-30] MEDS: CEFAZOLIN PMX 1GM/50ML 50 ML IVPB SCH ×2 (08:46→15:59)
[2017-05-30] MEDS: metFORMIN 500 MG TABLET PO SCH ×2 (08:46→17:56)
[2017-05-30] MEDS: FINASTERIDE 5 MG TABLET PO SCH (08:46)
[2017-05-30] MEDS: TAMSULOSIN 0.4 MG CAP.ER.24H PO SCH (08:46)
[2017-05-30] MEDS: CHOLECALCIFEROL 1,000 UNIT TABLET PO SCH (08:46)
[2017-05-30] MEDS: AMLODIPINE 5 MG TABLET PO SCH ×2 (08:47→21:00)
[2017-05-30] MEDS: LOSARTAN 50MG TABLET PO SCH (08:47)
[2017-05-30] MEDS: METHOCARBAMOL 750 MG in DEXTROSE 5% 100 ML IV SCH ×2 (08:48→16:58)
[2017-05-30] MEDS: DOCUSATE CALCIUM 240 MG CAPSULE PO SCH ×2 (09:00→21:22)
[2017-05-30 09:01] VITALS: BP 117/46
[2017-05-30 09:30] VITALS: BP 130/53
[2017-05-30 09:54] VITALS: BP 115/49
[2017-05-30 10:15] VITALS: BP 122/51
[2017-05-30 10:38] VITALS: BP 131/54
[2017-05-30 13:10] LABS: HEMATOCRIT 30.8 % (39.2-51.8); HEMOGLOBIN 10.3 g/dL (13.7-18.0)
[2017-05-30] MEDS: SIMVASTATIN 5 MG TABLET PO SCH (21:21)
[2017-05-31] MEDS ORDERED: TIZANIDINE 4MG TABLET PO PRN
[2017-05-31] MEDS: CEFAZOLIN PMX 1GM/50ML 50 ML IVPB SCH ×3 (00:47→16:34)
[2017-05-31 04:00] VITALS: BP 112/48
[2017-05-31 04:51] LABS: HEMATOCRIT 25.8 % (39.2-51.8); HEMOGLOBIN 8.6 g/dL (13.7-18.0); WHITE BLOOD COUNT 9.2 x10^3/uL (3.4-10)
[2017-05-31 04:54] LABS: BLOOD UREA NITROGEN 8 mg/dL (7-18)
[2017-05-31] MEDS: SODIUM CHLORIDE 0.9% 1,000 ML IV SCH (07:18)
[2017-05-31] MEDS ORDERED: HYDROmorphone 2MG TABLET PO PRN (08:30)
[2017-05-31] MEDS: AMLODIPINE 5 MG TABLET PO SCH ×2 (08:44→09:43)
[2017-05-31] MEDS: DOCUSATE CALCIUM 240 MG CAPSULE PO SCH ×3 (08:44→21:00)
[2017-05-31] MEDS: FINASTERIDE 5 MG TABLET PO SCH ×2 (08:44→09:43)
[2017-05-31] MEDS: metFORMIN 500 MG TABLET PO SCH ×3 (08:44→17:51)
[2017-05-31] MEDS: TAMSULOSIN 0.4 MG CAP.ER.24H PO SCH ×2 (08:44→09:43)
[2017-05-31] MEDS: CHOLECALCIFEROL 1,000 UNIT TABLET PO SCH ×2 (08:44→09:43)
[2017-05-31] MEDS: LOSARTAN 50MG TABLET PO SCH ×2 (08:44→09:43)
[2017-05-31] MEDS: CHLORTHALIDONE 25 MG TABLET PO SCH ×2 (08:45→09:43)
[2017-05-31 11:38] VITALS: BP 97/54
[2017-05-31 12:12] LABS: HEMATOCRIT 25.7 % (39.2-51.8); HEMOGLOBIN 8.5 g/dL (13.7-18.0); WHITE BLOOD COUNT 9.6 x10^3/uL (3.4-10)
[2017-05-31] MEDS: DIAZEPAM 5 MG TABLET PO PRN ×2 (13:45→22:12)
[2017-05-31 14:45] VITALS: BP 95/42
[2017-05-31] MEDS: OXYcodone IR 5MG TABLET PO PRN ×2 (17:30→21:40)
[2017-05-31 19:03] VITALS: BP 144/64
[2017-05-31] MEDS: SIMVASTATIN 5 MG TABLET PO SCH (22:53)
[2017-06-01] MEDS: CEFAZOLIN PMX 1GM/50ML 50 ML IVPB SCH ×2 (00:48→07:32)
[2017-06-01] MEDS: SODIUM CHLORIDE 0.9% 1,000 ML IV SCH ×2 (01:00→12:41)
[2017-06-01] MEDS: OXYcodone IR 5MG TABLET PO PRN ×5 (02:22→23:19)
[2017-06-01 02:33] VITALS: BP 141/86
[2017-06-01 05:20] LABS: HEMATOCRIT 26.3 % (39.2-51.8); HEMOGLOBIN 8.9 g/dL (13.7-18.0); WHITE BLOOD COUNT 8.5 x10^3/uL (3.4-10)
[2017-06-01 05:25] LABS: BLOOD UREA NITROGEN 6 mg/dL (7-18)
[2017-06-01] MEDS: metFORMIN 500 MG TABLET PO SCH ×2 (07:31→15:58)
[2017-06-01] MEDS: DIAZEPAM 5 MG TABLET PO PRN (07:32)
[2017-06-01 07:43] VITALS: BP 142/65
[2017-06-01] MEDS: FINASTERIDE 5 MG TABLET PO SCH (10:28)
[2017-06-01] MEDS: TAMSULOSIN 0.4 MG CAP.ER.24H PO SCH (10:28)
[2017-06-01] MEDS: DOCUSATE CALCIUM 240 MG CAPSULE PO SCH ×2 (10:29→21:00)
[2017-06-01] MEDS: CHOLECALCIFEROL 1,000 UNIT TABLET PO SCH (10:29)
[2017-06-01] MEDS: TIZANIDINE 4MG TABLET PO SCH ×2 (10:30→19:48)
[2017-06-01] MEDS ORDERED: SODIUM CHLORIDE 0.9% 1,000 ML IV SCH (15:30)
[2017-06-01] MEDS ORDERED: BISACODYL 10 MG SUPP PR PRN (15:30)
[2017-06-01] MEDS ORDERED: HYDROmorphone 2MG TABLET PO PRN (15:30)
[2017-06-01] MEDS ORDERED: ONDANSETRON 2MG/ML, 2ML IV PRN (15:30)
[2017-06-01] MEDS ORDERED: DIPHENHYDRAMINE 50 MG CAPSULE PO PRN (15:30)
[2017-06-01] MEDS ORDERED: ACETAMINOPHEN 325 MG TABLET PO PRN (15:30)
[2017-06-01] MEDS ORDERED: HYDROmorphone 2 MG/ML, 1ML IV PRN (15:30)
[2017-06-01 16:01] VITALS: BP 113/52
[2017-06-01 19:30] VITALS: BP 160/65
[2017-06-01] MEDS: SIMVASTATIN 5 MG TABLET PO SCH (21:56)
[2017-06-02 00:53] VITALS: BP 134/58
[2017-06-02] MEDS: TIZANIDINE 4MG TABLET PO SCH ×2 (03:34→10:30)
[2017-06-02] MEDS: OXYcodone IR 5MG TABLET PO PRN ×2 (05:47→10:30)
[2017-06-02 07:30] VITALS: BP 149/65
[2017-06-02] MEDS: FINASTERIDE 5 MG TABLET PO SCH (07:58)
[2017-06-02] MEDS: metFORMIN 500 MG TABLET PO SCH (07:58)
[2017-06-02] MEDS: CHOLECALCIFEROL 1,000 UNIT TABLET PO SCH (07:58)
[2017-06-02] MEDS: DOCUSATE CALCIUM 240 MG CAPSULE PO SCH (07:58)
[2017-06-02] MEDS: TAMSULOSIN 0.4 MG CAP.ER.24H PO SCH (07:58)
[2017-06-02] MEDS ORDERED: OXYC10TA6 PO (08:18)
[2017-06-02] MEDS ORDERED: TIZA4TAB9 PO (08:18)
[2017-06-02] MEDS: DIAZEPAM 5 MG TABLET PO PRN (08:53)
== END 2017-06-02 10:50 | DRG 457 ==
LOC: ORIP 06:05 → CCU 14:50 → 4NOR 05-31 11:33
PROVIDERS: ADMIT Neurological Surgery; ATTEND Neurological Surgery
PROC: 0SG1071 Fusion of 2 or more Lumbar Vertebral Joints with Autologous Tissue Substitute, Posterior Approach, Posterior Column, Open Approach (ICD-10-PCS; 2017-05-28)
PROC: 00NY0ZZ Release Lumbar Spinal Cord, Open Approach (ICD-10-PCS; 2017-05-28)
PROC: 0SP004Z Removal of Internal Fixation Device from Lumbar Vertebral Joint, Open Approach (ICD-10-PCS; 2017-05-28)
PROC: 0RPA04Z Removal of Internal Fixation Device from Thoracolumbar Vertebral Joint, Open Approach (ICD-10-PCS; 2017-05-28)
PROC: 0QS13ZZ Reposition Sacrum, Percutaneous Approach (ICD-10-PCS; 2017-05-28)
PROC: 0QU13JZ Supplement Sacrum with Synthetic Substitute, Percutaneous Approach (ICD-10-PCS; 2017-05-28)
PROC: 0PS43ZZ Reposition Thoracic Vertebra, Percutaneous Approach (ICD-10-PCS; 2017-05-28)
PROC: 0PU43JZ Supplement Thoracic Vertebra with Synthetic Substitute, Percutaneous Approach (ICD-10-PCS; 2017-05-28)
PROC: 30233N1 Transfusion of Nonautologous Red Blood Cells into Peripheral Vein, Percutaneous Approach (ICD-10-PCS; 2017-05-28)
PROC: 0RP604Z Removal of Internal Fixation Device from Thoracic Vertebral Joint, Open Approach (ICD-10-PCS; 2017-05-28)
PROC: 4A11X4G Monitoring of Peripheral Nervous Electrical Activity, Intraoperative, External Approach (ICD-10-PCS; principal; 2017-05-28 07:30)
DX: M40.205 Unspecified kyphosis, thoracolumbar region (principal); M48.56XA Collapsed vertebra, not elsewhere classified, lumbar region, initial encounter for fracture; E11.9 Type 2 diabetes mellitus without complications; J44.9 Chronic obstructive pulmonary disease, unspecified; M48.05 Spinal stenosis, thoracolumbar region; W07.XXXA Fall from chair, initial encounter; I10 Essential (primary) hypertension; I25.10 Atherosclerotic heart disease of native coronary artery without angina pectoris; N40.0 Benign prostatic hyperplasia without lower urinary tract symptoms; Z87.891 Personal history of nicotine dependence; G89.29 Other chronic pain; I44.7 Left bundle-branch block, unspecified; M48.04 Spinal stenosis, thoracic region; M48.06 Spinal stenosis, lumbar region; Z88.5 Allergy status to narcotic agent; Z88.2 Allergy status to sulfonamides; Z82.5 Family history of asthma and other chronic lower respiratory diseases; Z83.3 Family history of diabetes mellitus; Z82.49 Family history of ischemic heart disease and other diseases of the circulatory system
CPT/HCPCS: 36415; 72100; 80048; 82962; 84484; 85014; 85018; 85025; 86850; 86870; 86900; 86902; 86922; 86923; 87081; 95938; 95941; C1713; J0171; J0690; J1100; J1170; J2250; J2405; J2704; J3010; J3370; J3480; J3490; C1762; J0330; J1200; J2370; J2800; J7030; J7050; J7120; P9016; Q0163